=== PATIENT | male | born 1955 | race Caucasian/White ===

== ENCOUNTER → 2024-01-21 07:28 | Outpatient (REF) | payer BC, SELFPAY | LOC: RAD 07:28 | PROVIDERS: ATTENDING PHYSICIAN Otolaryngology; FAMILY PHYSICIAN Family Medicine | DX: J32.8 Other chronic sinusitis (principal) | CPT/HCPCS: 70486 ==

== ENCOUNTER → 2025-07-14 09:31 | Outpatient (REF) | payer BC, SELFPAY | LOC: HWRAD 09:31 | PROVIDERS: ATTENDING PHYSICIAN Specialist; FAMILY PHYSICIAN Family Medicine | DX: R33.9 Retention of urine, unspecified (principal) | CPT/HCPCS: 74176 ==

== ENCOUNTER 2025-07-27 06:13 | Day surgery (SDC) | payer BC, SELFPAY ==
--- NOTE | 2025-07-26 12:59 | PTCARENOTE ---
Addendum entered by Berta Childs 07/26/25 15:01:
Dr Nelson also notified of abnormal Hgb 8.3, no further intervention requested.
Original Note:
Jeniffer at Dr Daniel's office notified of abnormal Hgb 8.3 and eGFR 48 collected 07/25/25.
[2025-07-27] VITALS (12 sets, daily range): BP systolic 109–156; BP diastolic 61–86; BMI 24.9
[2025-07-27] MEDS: NORMOSOL-R/PLASMALYTE-A 1000 IV (10:45)
[2025-07-27] MEDS: DETROL LA 4 MG PO (14:01)
== END 2025-07-27 15:37 | disposition home or self-care (01) ==
LOC: SDS 06:13
PROVIDERS: ATTENDING PHYSICIAN Specialist
DX: N35.912 Unspecified bulbous urethral stricture, male (principal); R33.9 Retention of urine, unspecified; N32.89 Other specified disorders of bladder; N40.0 Benign prostatic hyperplasia without lower urinary tract symptoms
CPT/HCPCS: 52500; 93005

== ENCOUNTER → 2025-10-06 15:36 | Outpatient (REF) | payer BC, SELFPAY | LOC: HWRAD 15:36 | PROVIDERS: ATTENDING PHYSICIAN Specialist; FAMILY PHYSICIAN Family Medicine | DX: N35.814 Other anterior urethral stricture, male (principal); R33.9 Retention of urine, unspecified | CPT/HCPCS: 76775 ==